=== PATIENT | female | born 1935 | race Caucasian/White ===

== ENCOUNTER 2021-02-03 10:40 | Emergency (ER) | payer OTHER ==
[~2021-02-03] VITALS: Ht 152.4 cm; Wt 65.3 kg
[~2021-02-03 10:40] MED LIST: ALEVE220 M1 PO; AMLODIPINE BESY10 MG PO; ANTIVERT25 M1 PO; ASA81 MG; CALCIUM 600-VI1 EAC2 PO; CALTRATE-600/VI1 TA1; CARDURA1 MG; CATAPRES0.1 MG; CEFADROXIL500 MG PO; CIPRO500 MG PO; FLAGYL500MG PO; GLIPIZIDE ER2.5 MG PO; GLIPIZIDE2.5 MG/BO1; IMDUR30 MG; INTESTINEX680 M1 PO; METFORMIN HCL500 M4 PO; METFORMIN HCL500 MG; NORVASC10 MG; PERCOCET 5/3251 TAB PO; SIMVASTATIN20 MG PO; ST. JOSEPH ASPI81 M2 PO; VASOTEC10 MG; VASOTEC20 MG PO; VITAMIN B-121000 MC2 SL; VITAMIN D350 MCG PO; ZOCOR20 MG
[2021-02-03] MEDS ORDERED: KETO10TA2 PO (13:43)
[2021-02-03] MEDS ORDERED: MEDROLPACK PO (13:46)
== END 2021-02-03 14:59 | disposition home or self-care (01) ==
LOC: ER 10:40
DX: M54.5 Low back pain (principal)